=== PATIENT | male | born 1975 | race Caucasian/White ===

== ENCOUNTER 2016-04-30 20:01 | Emergency (ER) | payer OTHER ==
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
--- NOTE | 2016-05-05 08:47 | ED MAR SUMMARY ---
..... Medication Administration Record [facility] [address] [place] [address] Patient: DON HAAS Visit ID: [id number] 41y, M Weight: 108.8 kg Height/Length: 71 in BMI: 33.5 ALLERGIES: Sulfa Antibiotics
--- NOTE | 2016-05-05 08:47 | ED MAR SUMMARY ---
..... Medication Administration Record [facility] [address] [place] [address] Patient: DON HAAS Visit ID: [id number] 41y, M Weight: 108.8 kg Height/Length: 71 in BMI: 33.5 ALLERGIES: Sulfa Antibiotics
--- NOTE | 2016-05-05 08:47 | ED DISCHARGE INSTRUCTIONS ---
Patient: DON HAAS General Instructions [facility] VisitID: [id number] [place] [address] 41y, M Registration Date/Time: 04/30/2016 Muscle strain of the upper back. INSTRUCTIONS Warnings: GENERAL WARNINGS: Return or contact your physician immediately if your condition worsens or changes unexpectedly, if not improving as expected, or if other problems arise. Follow-up: Follow up with your doctor as needed. Understanding of the discharge instructions verbalized by patient. ADDITIONAL INFORMATION Back Pain [Acute Or Chronic] Back pain is usually caused by an injury to the muscles or ligaments of the spine. Sometimes the disks that separate each bone in the spine may bulge and cause pain by pressing on a nearby nerve. Back pain may also appear after a sudden twisting/bending force (such as in a car accident), after a simple awkward movement, or lifting something heavy with poor body positioning. In either case, muscle spasm is often present and adds to the pain. Acute back pain usually gets better in one to two weeks. Back pain related to disk disease, arthritis in the spinal joints or spinal stenosis (narrowing of the spinal canal) can become chronic and last for months or years. Unless you had a physical injury (for example, a car accident or fall) X-rays are usually not ordered for the initial evaluation of back pain. If pain continues and does not respond to medical treatment, x-rays and other tests may be performed at a later time. Home Care: You may need to stay in bed the first few days. But, as soon as possible, begin sitting or walking to avoid problems with prolonged bed rest (muscle weakness, worsening back stiffness and pain, blood clots in the legs). When in bed, try to find a position of comfort. A firm mattress is best. Try lying flat on your back with pillows under your knees. You can also try lying on your side with your knees bent up towards your chest and a pillow between your knees. Avoid prolonged sitting. This puts more stress on the lower back than standing or walking. During the first two days after injury, apply an ICE PACK to the painful area for 20 minutes every 2-4 hours. This will reduce swelling and pain. HEAT (hot shower, hot bath or heating pad) works well for muscle spasm. You can start with ice, then switch to heat after two days. Some patients feel best alternating ice and heat treatments. Use the one method that feels the best to you. You may use acetaminophen (Tylenol) or ibuprofen (Motrin, Advil) to control pain, unless another pain medicine was prescribed. [NOTE: If you have chronic liver or kidney disease or ever had a stomach ulcer or GI bleeding, talk with your doctor before using these medicines.] Be aware of safe lifting methods and do not lift anything over 15 pounds until all the pain is gone. Follow Up with your doctor or this facility if your symptoms do not start to improve after one week. Physical therapy may be needed. [NOTE: If X-rays were taken, they will be reviewed by a radiologist. You will be notified of any new findings that may affect your care.] Get Prompt Medical Attention if any of the following occur: Pain becomes worse or spreads to your legs Weakness or numbness in one or both legs Loss of bowel or bladder control Numbness in the groin or genital area You have been given the following additional information: Back Pain (Acute Or Chronic) (Electronically signed by Sheree Buck MD 05/05/2016 8:47)
--- NOTE | 2016-05-05 08:47 | ED MED RECONCILIATION SUMMARY ---
Patient: DON HAAS Medication Reconciliation Report [facility] VisitID: [id number] [address] [place] [place] [address] 41y, M Registration Date/Time: 04/30/2016 Weight: 108.8 kg Height/Length: 71 in. BMI: 33.5 ALLERGIES: Sulfa Antibiotics The patient's Home Medications are listed below: NONE. The source(s) of the original Home Medication information: patient The following Medications were given to the patient in the Emergency Department: None. The following Medications were prescribed to the patient: None.
--- NOTE | 2016-05-05 08:47 | ED MED RECONCILIATION SUMMARY ---
Patient: DON HAAS Medication Reconciliation Report [facility] VisitID: [id number] [address] [place] [address] 41y, M Registration Date/Time: 04/30/2016 Weight: 108.8 kg Height/Length: 71 in. BMI: 33.5 ALLERGIES: Sulfa Antibiotics The patient's Home Medications are listed below: NONE. The source(s) of the original Home Medication information: patient The following Medications were given to the patient in the Emergency Department: None. The following Medications were prescribed to the patient: None.
== END 2016-04-30 21:12 | disposition home or self-care (01) ==
LOC: ED SRH 20:01
DX: S39.012A Strain of muscle, fascia and tendon of lower back, initial encounter (principal); V13.4XXA Pedal cycle driver injured in collision with car, pick-up truck or van in traffic accident, initial encounter; Y93.55 Activity, bike riding; Y99.8 Other external cause status; Y92.410 Unspecified street and highway as the place of occurrence of the external cause; I10 Essential (primary) hypertension; E78.5 Hyperlipidemia, unspecified; Z88.2 Allergy status to sulfonamides

== ENCOUNTER 2016-06-07 12:53 | Emergency (ER) | payer OTHER ==
--- NOTE | 2016-06-07 13:39 | DIAGNOSTIC IMAGING REPORT ---
PROCEDURE: XR CHEST 2 VIEW INDICATION: CP TECHNIQUE: PA and lateral views. COMPARISON: Chest 09/01/1959 FINDINGS: Lungs are clear. Heart and mediastinum are normal. Thorax is normal. IMPRESSION: 1. Negative chest.
--- NOTE | 2016-06-07 15:34 | DIAGNOSTIC IMAGING REPORT ---
PROCEDURE: CTA THORAX WITH CONTRAST INDICATION: CHEST PAIN, RADIATES TO BACK, HX OF DRUG USE TECHNIQUE: 100 ml of Isovue 370 was injected intravenously and axial images were obtained of the chest with 3D sagittal and coronal MIP reconstructions. COMPARISON: Chest x-ray Performed the same day FINDINGS: Normal opacification of the pulmonary arterial tree without filling defect. The central pulmonary arteries are normal caliber. Thoracic aorta is normal caliber. No dissection or hematoma. The great vessels demonstrate a normal branching pattern. Heart size is normal. No pericardial effusion. No adenopathy or mediastinal masses. The esophagus is normal in caliber with a small hiatal hernia. The thyroid gland is normal. The lungs are clear. Mild circumferential peribronchial thickening involving the right hilar region and bilateral lower lobes. The airway is patent and branches normally. No pleural effusions or pneumothorax. Osseous structures are intact. The images obtained of the upper abdomen demonstrate mild splenomegaly. IMPRESSION: 1. No pulmonary embolus. 2. Mild bilateral perihilar peribronchial and lower lobe peribronchial thickening. This is nonspecific and may reflect acute or chronic bronchitis or reactive airways disease/asthma. 3. Mild splenomegaly, correlate clinically. 4. Findings called to the emergency room.
--- NOTE | 2016-06-07 15:46 | ED CLINICAL REPORT ---
Clinical Report - Physicians/Mid Levels [facility] [address] [place] [address] 06/07/2016 12:53 Patient: DON HAAS Arrived- By private vehicle. Historian- patient. HISTORY OF PRESENT ILLNESS Chief Complaint: CHEST PAIN. It is described as "pain" and it is described as located in the central chest area and radiating to the upper back. This started past 4 days and is still present. Onset during rest. At its maximum, severity described as moderate. When seen in the E.D., severity described as moderate. Modifying factors- (improved by heroin). Not worsened by anything. No nausea, vomiting, difficulty breathing or diaphoresis. (Reports being under a lot of stress as his significant other had recently from a severe infection. Patient also reports that he does recreational drugs and his significant other had also done the same.). No additional chest pain. Similar symptoms previously: None. Recent medical care: Not recently seen/assessed. REVIEW OF SYSTEMS No fever or skin rash. All systems otherwise negative, except as recorded above. PAST HISTORY See nurses notes. Denies the following risk factors for DVT/PE - history of DVT and pulmonary embolism, recent surgery, recent MN and congestive heart failure. Denies the following risk factors for DVT/PE - cancer, clotting disorder, estrogens, obesity and immobility. Denies the following risk factors for DVT/PE - advanced in age and vena cava filter. SOCIAL HISTORY Smoker- current status unknown. Occasional alcohol use. History of drug use. No recent travel. Is a local resident. ADDITIONAL NOTES The nursing notes have been reviewed. PHYSICAL EXAM Vital Signs: 06/07/2016 12:49 BP: 146/82. HR: 77. RR: 14. O2 saturation: 100%. Temp: 98 F. Pain level now: 9/10. Blood pressure normal. Oxygen saturation normal. Appearance: Alert. Oriented X3. No acute distress. Eyes: Pupils equal, round and reactive to light. Eyes normal inspection. ENT: Ears normal. Nose normal. Pharynx normal. Neck: Normal inspection. Neck supple. CVS: Normal heart rate and rhythm. Heart sounds normal. Pulses normal. Respiratory: No respiratory distress. Breath sounds normal. Chest nontender. No rales, rhonchi or wheezes. Abdomen: Soft and nontender. Bowel sounds normal. Skin: Skin warm and dry. Normal skin color. No rash. Normal skin turgor. Extremities: Extremities exhibit normal ROM. No lower extremity edema. Neuro: Oriented X 3. No motor deficit. No sensory deficit. LABS, X-RAYS, AND EKG EKG: No acute process. No acute ischemia. Normal EKG. Normal sinus rhythm. Normal P waves. Normal JAN. Normal QRS complex. Normal axis. Normal ST and T waves, QT and QTc. Prior EKG unavailable. The study has been interpreted contemporaneously. The study has been independently viewed by me. The EKG appears to be a good tracing. Chest X-ray: (PROCEDURE: XR CHEST 2 VIEW INDICATION: CP TECHNIQUE: PA and lateral views. COMPARISON: Chest 09/01/1959 FINDINGS: Lungs are clear. Heart and mediastinum are normal. Thorax is normal. IMPRESSION: 1. Negative chest.). Views: PA and lateral. The X-rays were independently viewed by me and interpreted by the radiologist. The X-rays were discussed with the radiologist (via pacs). Chest CT: (PROCEDURE: CTA THORAX WITH CONTRAST INDICATION: CHEST PAIN, RADIATES TO BACK, HX OF DRUG USE TECHNIQUE: 100 ml of Isovue 370 was injected intravenously and axial images were obtained of the chest with 3D sagittal and coronal MIP reconstructions. COMPARISON: Chest x-ray Performed the same day FINDINGS: Normal opacification of the pulmonary arterial tree without filling defect. The central pulmonary arteries are normal caliber. Thoracic aorta is normal caliber. No dissection or hematoma. The great vessels demonstrate a normal branching pattern. Heart size is normal. No pericardial effusion. No adenopathy or mediastinal masses. The esophagus is normal in caliber with a small hiatal hernia. The thyroid gland is normal. The lungs are clear. Mild circumferential peribronchial thickening involving the right hilar region and bilateral lower lobes. The airway is patent and branches normally. No pleural effusions or pneumothorax. Osseous structures are intact. The images obtained of the upper abdomen demonstrate mild splenomegaly. IMPRESSION: 1. No pulmonary embolus. 2. Mild bilateral perihilar peribronchial and lower lobe peribronchial thickening. This is nonspecific and may reflect acute or chronic bronchitis or reactive airways disease/asthma. 3. Mild splenomegaly, correlate clinically.). Chest CT performed with contrast. The study was independently viewed by me and interpreted by the radiologist. The study was discussed with the radiologist (via pacs and phone). Laboratory Tests: CBC w Diff: (CAROLINA: 06/07/2016 13:05) ( MsgRcvd 06/07/2016 13:56) Final results Test Result Flag Units (Reference) WHITE BLOOD COUNT 8.2 K/uL (4.5-11.5) RED BLOOD COUNT 5.08 M/uL (4.50-5.90) HEMOGLOBIN 14.4 gm/dL (13.5-17.5) HEMATOCRIT 42.7 % (41.0-53.0) MEAN CELL VOLUME 84 fL (80-100) MEAN CORPUSCULAR HGB 28 pg (26-34) MEAN CORPUSCULAR HGB CONC 34 g/dL (31-37) RED CELL DISTRIBUTION WIDTH 14.0 % (11.6-14.8) PLATELET COUNT 460 H K/uL (150-400) NEUTROPHIL % 58.8 % (50-75) LYMPH % 26.7 % (25-40) MONO % 8.6 % (3-14) EOSINOPHIL % 5.5 H % (0-4) BASOPHIL % 0.4 % (0-2) PT with INR: (CAROLINA: 06/07/2016 13:05) ( MsgRcvd 06/07/2016 13:42) Final results Test Result Flag Units (Reference) INR 1.0 (0.8-1.2) Low Intensity Therapy: INR 1.5-2.0 PT range 18.5-23.1Mod.Intensity Therapy: INR 2.0-3.0 PT range 23.1-31.5High Intensity Therapy: INR 2.5-3.5 PT range 27.4-35.5High Intensity Therapy 2: INR 3.0-4.0 PT range 31.5-39.3 APTT 35 H SECONDS (24-34) D-DIMER QUANTITATIVE 0.86 H ug/mLFEU (0.27-0.52) The primary value of this quantitative assay relates toits negative predictive value (i.e. exclusion) of pulmonaryembolism/deep vein thrombosis/DIC.Elevated levels of d-dimer may also occur with:, age, cancer, inflammation, liver disease,post-op, infection, hematoma, coronary disease, peripheralarteriopathy, bleeding disorders and thrombolytic treatment.Results should be correlated with other clinical andradiological data.Testing Methodology: Latex Immunoassay BNP: (CAROLINA: 06/07/2016 13:05) ( [facility] 06/07/2016 14:23) Final results Test Result Flag Units (Reference) B-TYPE NATRIURETIC PEPTIDE < 5.0 L pg/ml (5-100) CMP: (CAROLINA: 06/07/2016 13:05) ( [facility] 06/07/2016 13:50) Final results Test Result Flag Units (Reference) GLUCOSE 95 mg/dL (70-110) BUN 11 mg/dL (7-18) CREATININE 0.8 mg/dL (0.6-1.3) Estimated GFR >60 mL/min Estimated GFR- >60 mL/min Note: Persistent reduction over 3 months in eGFR<60 mL/min/1.73 m2 defines CKD. Patients with eGFR values>=60 mL/min/1.73 m2 may also have CKD if evidence ofpersistent proteinuria. Additional information may be foundat www.kidney.org. SODIUM 140 mmol/L (136-145) POTASSIUM 4.2 mmol/L (3.5-5.1) CHLORIDE 104 mmol/L (98-107) CARBON DIOXIDE 31 mmol/L (21-32) CALCIUM 9.0 mg/dL (8.5-10.1) TOTAL PROTEIN 7.6 g/dL (6.4-8.2) ALBUMIN 3.6 g/dL (3.3-5.0) BILIRUBIN, TOTAL 0.3 mg/dL (0.0-1.0) ALKALINE PHOSPHATASE 86 U/L (46-116) AST (SGOT) 35 U/L (15-37) ALT (SGPT) 46 U/L (12-78) TROPONIN I <0.05 L ng/mL (0.00-1.5) TROPONIN REFERENCE RANGE:<0.1 NEGATIVE0.1-1.5 INDETERMINANT>1.5 POSITIVE . PROGRESS AND PROCEDURES Course of Care: the patient is a pleasant 41-year-old male presenting for evaluation of chest pain. Patient has significant risk factors with his his substance abuse. Patient will be evaluated with chest x-ray, EKG, laboratory studies. His chest pain has been ongoing for the past 4 days. Single troponin required at this time. Did not fill delta troponin needed because of the chest pain being greater than 8 hours. Patient is agreeable to treatment plan. Pain medications have been ordered. Patient is otherwise nontoxic and in no acute distress. Patient's work up was remarkable for elevation in the d-dimer. Because of the patient's presentation, pulmonary embolism or thoracic aortic dissection could be a possibility. I discussion with patient in regards to CT scan. Patient is agreeable to treatment plan. CT scan has been ordered. Rest the patient slept her studies and noted to be unremarkable. White blood cell count normal at 8.2. Hemoglobin and hematocrit are normal at 14.4 and 42.7 respectively. No consolidations or effusions noted on patient's chest x-ray. EKG is also unremarkable. The patient's CT scan does not show any signs of pulmonary embolism or thoracic ordered dissection. Patient is resting in bed in no acute distress. Symptoms have improved while here in the emergency department. Had long discussion with patient in regards to his symptoms here in the emergency department and help of X of substance abuse. Encouraged patient to seek help and obtain help for his substance abuse here patient expressed understanding of my concerns and was agreeable to look into them. Patient's symptoms likely associated with a recent with a significant other. do not feel patient needs be admitted to the hospital or require further emergency department workup/evaluation. Patient will be given a referral to cardiology for outpatient follow-up and management of his chest pain. Patient is a stable outpatient candidate. a discussed with patient his workup here in the emergency department included home care, follow-up, return precautions, diagnosis precautions questions have been answered. The patient expressed understanding of these instructions and was agreeable to them. Disposition: Discharged. Condition: good. CLINICAL IMPRESSION Chest pain characterized as "tightness" .12 lead EKG performed. 06/07/2016 14:00 BP: 112/59. HR: 73. RR: 16. O2 saturation: 99%. Pain level now: 09/11. Blood pressure normal. Oxygen saturation normal. INSTRUCTIONS (Help is available if you need. Speak with your local substance abuse hotline for help. [phone]). Warnings: GENERAL WARNINGS: Return or contact your physician immediately if your condition worsens or changes unexpectedly, if not improving as expected, or if other problems arise. SPECIFICALLY, return if you develop chest, neck, jaw, shoulder, arm, or back pain, difficulty breathing, a fluttering sensation in your chest, lightheadedness, fainting, excessive fatigue, or sudden sweating. Your Current Medications: CONTINUE TAKING THE FOLLOWING MEDICATIONS: None*. OTC Medications: Aspirin 81 mg (available over the counter): take 1 orally every 24 hours. Dispense thirty (30). No refills. Follow-up: Return to the emergency department as needed. Follow up with your doctor in three days. Reason for referral: recheck today's concerns. Summary of care provided to patient via paper. Screening today revealed the patient's blood pressure to be in the normal range. The patient should follow up with a primary care provider for blood pressure management. Understanding of the discharge instructions verbalized by patient. Follow-up with: Alejo Carreno MD, Cardiology, , [facility] - Cardiology, [address] [place] [address] [address], [place], [id number] Follow up in three days. Reason for referral: recheck today's concerns. Summary of care provided to patient via paper. (Electronically signed by Ronaldo Almendarez Dr. 06/09/2016 5:07)
--- NOTE | 2016-06-07 15:46 | ED ORDER SUMMARY ---
..... Patient: DON HAAS OrderSheet Merged With [facility] VisitID: [id number] [place] [address] 41y, M Registration Date/Time: 06/07/2016 ORDER SHEET Weight: 113.3 kg (stated) Allergies: Sulfa Antibiotics GENERAL ORDERS: Chest 2V Urgent (13:14 06/07/2016 Heriberto Valladares) (Ack 13:16 Ronnie) (13:30 CARLOSoerner) CBC w Diff Urgent (13:14 06/07/2016 Heriberto Valladares) (Ack 13:16 Ronnie) (13:20 EHassan R.N.) CMP Urgent (13:14 06/07/2016 Heriberto Valladares) (Ack 13:16 Ronnie) (13:20 EHassan R.N.) UA-Culture if indicated Urgent (13:14 06/07/2016 Heriberto Valladares) (Ack 13:16 Ronnie) (14:53 KHoerner) PT with INR Urgent (13:14 06/07/2016 Heriberto Valladares) (Ack 13:16 Ronnie) (13:20 EHassan R.N.) PTT Urgent (13:14 06/07/2016 Heriberto Valladares) (Ack 13:16 Ronnie) (13:20 EHassan R.N.) D-Dimer Urgent (13:14 06/07/2016 Heriberto Valladares) (Ack 13:16 Ronnie) (13:20 EHsydnin R.N.) Troponin-I Urgent (13:14 06/07/2016 Heriberto Valladares) (Ack 13:16 Ronnie) (13:20 EHsydnin R.N.) BNP Urgent (13:14 06/07/2016 Heriberto Valldaares) (Ack 13:16 Ronnie) (13:20 EHassan R.N.) Pulse oximeter (13:14 06/07/2016 Heriberto Valladares) (13:20 EHassan R.N.) EKG - ER Stat (13:36 06/07/2016 PWeiler ER Tech1 per protocol) (13:36 PWeiler ER Tech1) CTA Thorax w Cont (No) (N/A) Urgent (13:54 06/07/2016 Heriberto Valladares) (Ack 13:57 CARLOSoerner) (15:32 Ronnie) MEDICATION ORDERS: NitroGLYCERIN SL 0.4 mg (once now) (13:14 06/07/2016 Heriberto Valladares) (14:07 Ashutosh R.N.) IV FLUIDS: IV Saline Lock (13:14 06/07/2016 Heriberto Valladares) (13:21 Ashutosh R.N.) Morphine IV 8 mg (HIGH ALERT MEDICATION, NOW) (14:08 06/07/2016 Heriberto Valladares) (14:14 Ashutosh R.N.) Dilaudid IV 1 mg (HIGH ALERT MEDICATION, NOW) (14:37 06/07/2016 Heriberto Valladares) (Ack 15:45 Kerri R.NDaniel) (15:54 Ashutosh R.N.) ORDER SHEET NOTES: [Electronically signed by Yvonne Addison R.N. (16:32 06/07/2016)] [Electronically signed by Ronaldo Almendarez Dr. (05:07 06/09/2016)] [Electronically locked/signed by Yvonne Addison R.N. (16:32 06/07/2016)]
--- NOTE | 2016-06-07 15:46 | ED ORDER SUMMARY ---
..... Patient: DON HAAS OrderSheet [facility] VisitID: [id number] [place] [address] 41y, M Registration Date/Time: 06/07/2016 ORDER SHEET Weight: 113.3 kg (stated) Allergies: Sulfa Antibiotics GENERAL ORDERS: Chest 2V Urgent (13:14 06/07/2016 Heriberto Valladares) (Ack 13:16 Ronnie) (13:30 CARLOSoerner) CBC w Diff Urgent (13:14 06/07/2016 Heriberto Valladares) (Ack 13:16 Ronnie) (13:20 EHassan R.N.) CMP Urgent (13:14 06/07/2016 Heriberto Valladares) (Ack 13:16 Ronnie) (13:20 EHassan R.N.) UA-Culture if indicated Urgent (13:14 06/07/2016 Heriberto Valladares) (Ack 13:16 Ronnie) (14:53 KHoerner) PT with INR Urgent (13:14 06/07/2016 Heriberto Valladares) (Ack 13:16 Ronnie) (13:20 EHassan R.N.) PTT Urgent (13:14 06/07/2016 Heriberto Valladares) (Ack 13:16 Ronnie) (13:20 EHassan R.N.) D-Dimer Urgent (13:14 06/07/2016 Heriberto Valladares) (Ack 13:16 Ronnie) (13:20 EHsydnin R.N.) Troponin-I Urgent (13:14 06/07/2016 Heriberto Valladares) (Ack 13:16 Ronnie) (13:20 EHsydnin R.N.) BNP Urgent (13:14 06/07/2016 Heriberto Valladares) (Ack 13:16 Ronnie) (13:20 EHassan R.N.) Pulse oximeter (13:14 06/07/2016 Heriberto Valladares) (13:20 EHassan R.N.) EKG - ER Stat (13:36 06/07/2016 PWeiler ER Tech1 per protocol) (13:36 PWeiler ER Tech1) CTA Thorax w Cont (No) (N/A) Urgent (13:54 06/07/2016 Heriberto Valladares) (Ack 13:57 CARLOSoerner) (15:32 Ronnie) MEDICATION ORDERS: NitroGLYCERIN SL 0.4 mg (once now) (13:14 06/07/2016 Heriberto Valladares) (14:07 Ashutosh R.N.) IV FLUIDS: IV Saline Lock (13:14 06/07/2016 Heriberto Valladares) (13:21 Ashutosh R.N.) Morphine IV 8 mg (HIGH ALERT MEDICATION, NOW) (14:08 06/07/2016 Heriberto Valladares) (14:14 Ashutosh R.N.) Dilaudid IV 1 mg (HIGH ALERT MEDICATION, NOW) (14:37 06/07/2016 Heriberto Valladares) (Ack 15:45 Kerri R.NDaniel) (15:54 Ashutosh R.N.) ORDER SHEET NOTES: [Electronically signed by Yvonne Addison R.N. (16:32 06/07/2016)] [Electronically signed by Ronaldo Almendarez Dr. (05:07 06/09/2016)] [Electronically locked/signed by Yvonne Addison R.N. (16:32 06/07/2016)]
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
--- NOTE | 2016-06-09 05:08 | ED MED RECONCILIATION SUMMARY ---
Patient: DON HAAS Medication Reconciliation Report [facility] VisitID: [id number] [address] [place] [address] 41y, M Registration Date/Time: 06/07/2016 Weight: 113.3 kg Height/Length: 68 in. BMI: 38.0 ALLERGIES: Sulfa Antibiotics The patient's Home Medications are listed below: NONE. The source(s) of the original Home Medication information: patient The following Medications were given to the patient in the Emergency Department: Nitroglycerin [SL] SL 0.4 mg, administered: 06/07/2016 2:07:00 PM Morphine [IVP] IVP 8 mg, administered: 06/07/2016 2:14:00 PM Dilaudid [IVP] IVP 1 mg, administered: 06/07/2016 3:54:00 PM The following Medications were prescribed to the patient: Aspirin 81 mg (available over the counter): take 1 orally every 24 hours. Dispense thirty (30). No refills. -- Ronaldo Almendarez Dr.
--- NOTE | 2016-06-09 05:08 | ED MAR SUMMARY ---
..... Medication Administration Record [facility] [address] [place] [place] [address] Patient: DON HAAS Visit ID: [id number] 41y, M Weight: 113.3 kg Height/Length: 68 in BMI: 38 ALLERGIES: Sulfa Antibiotics Given 14:07 06/07/2016 Yvonne Addison R.N. Medication Administered: NITROGLYCERIN [SL], Dose: 0.4 mg Tablets SL. Medication Ordered: NitroGLYCERIN SL 0.4 mg (once now). Given 14:14 06/07/2016 Yvonne Addison R.NDaniel Medication Administered: MORPHINE [IVP], Dose: 8 mg IVP over 2 minute(s), Site: #1 left AC. Medication Ordered: Morphine IV 8 mg (HIGH ALERT MEDICATION, NOW). Given 15:54 06/07/2016 Yvonne Addison RDanielN. Medication Administered: DILAUDID [IVP] (HYDROMORPHONE HCL PF), Dose: 1 mg IVP over 2 minute(s), Site: #1 left AC. Medication Ordered: Dilaudid IV 1 mg (HIGH ALERT MEDICATION, NOW).
--- NOTE | 2016-06-09 05:08 | ED MAR SUMMARY ---
..... Medication Administration Record [facility] [address] [place] [address] Patient: DON HAAS Visit ID: [id number] 41y, M Weight: 113.3 kg Height/Length: 68 in BMI: 38 ALLERGIES: Sulfa Antibiotics Given 14:07 06/07/2016 Yvonne Addison R.N. Medication Administered: NITROGLYCERIN [SL], Dose: 0.4 mg Tablets SL. Medication Ordered: NitroGLYCERIN SL 0.4 mg (once now). Given 14:14 06/07/2016 Yvonne Addison R.NDaniel Medication Administered: MORPHINE [IVP], Dose: 8 mg IVP over 2 minute(s), Site: #1 left AC. Medication Ordered: Morphine IV 8 mg (HIGH ALERT MEDICATION, NOW). Given 15:54 06/07/2016 Yvonne Addison RDanielN. Medication Administered: DILAUDID [IVP] (HYDROMORPHONE HCL PF), Dose: 1 mg IVP over 2 minute(s), Site: #1 left AC. Medication Ordered: Dilaudid IV 1 mg (HIGH ALERT MEDICATION, NOW).
--- NOTE | 2016-06-09 05:08 | ED MED RECONCILIATION SUMMARY ---
Patient: DON HAAS Medication Reconciliation Report [facility] VisitID: [id number] [address] [place] [address] 41y, M Registration Date/Time: 06/07/2016 Weight: 113.3 kg Height/Length: 68 in. BMI: 38.0 ALLERGIES: Sulfa Antibiotics The patient's Home Medications are listed below: NONE. The source(s) of the original Home Medication information: patient The following Medications were given to the patient in the Emergency Department: Nitroglycerin [SL] SL 0.4 mg, administered: 06/07/2016 2:07:00 PM Morphine [IVP] IVP 8 mg, administered: 06/07/2016 2:14:00 PM Dilaudid [IVP] IVP 1 mg, administered: 06/07/2016 3:54:00 PM The following Medications were prescribed to the patient: Aspirin 81 mg (available over the counter): take 1 orally every 24 hours. Dispense thirty (30). No refills. -- Ronaldo Almendarez Dr.
--- NOTE | 2016-06-09 05:08 | ED DISCHARGE INSTRUCTIONS ---
Patient: DON HAAS General Instructions [facility] VisitID: [id number] [place] [address] 41y, M Registration Date/Time: 06/07/2016 Chest pain characterized as "tightness" .12 lead EKG performed. 06/07/2016 14:00 BP: 112/59. HR: 73. RR: 16. O2 saturation: 99%. Pain level now: 09/11. Blood pressure normal. Oxygen saturation normal. INSTRUCTIONS (Help is available if you need. Speak with your local substance abuse hotline for help. [phone]). Warnings: GENERAL WARNINGS: Return or contact your physician immediately if your condition worsens or changes unexpectedly, if not improving as expected, or if other problems arise. SPECIFICALLY, return if you develop chest, neck, jaw, shoulder, arm, or back pain, difficulty breathing, a fluttering sensation in your chest, lightheadedness, fainting, excessive fatigue, or sudden sweating. Your Current Medications: CONTINUE TAKING THE FOLLOWING MEDICATIONS: None*. OTC Medications: Aspirin 81 mg (available over the counter): take 1 orally every 24 hours. Dispense thirty (30). No refills. Follow-up: Return to the emergency department as needed. Follow up with your doctor in three days. Reason for referral: recheck today's concerns. Summary of care provided to patient via paper. Screening today revealed the patient's blood pressure to be in the normal range. The patient should follow up with a primary care provider for blood pressure management. Understanding of the discharge instructions verbalized by patient. Follow-up with: Alejo Carreno MD, Cardiology, , [facility] - Cardiology, [id number] [address] [address], [place], [address] Follow up in three days. Reason for referral: recheck today's concerns. Summary of care provided to patient via paper. ADDITIONAL INFORMATION Chest Pain, Uncertain Cause Chest pain can happen for a number of reasons. Sometimes the cause can not be determined. If yourcondition does not seem serious, and your pain does not appear to be coming from your heart, your doctor may recommend watching it closely. Sometimes the signs of a serious problem take more time to appear. Therefore, watch for the warning signs listed below. Home care After your visit, follow these recommendations: Rest today and avoid strenuous activity. Take any prescribed medicine as directed. Follow-up care Follow up with your doctor or this facility as instructed or if you do not start to feel better within 24 hours. Call 911 Get immediate medical attention if any of the following occur: A change in the type of pain: if it feels different, becomes more severe, lasts longer, or begins to spread into your shoulder, arm, neck, jaw or back Shortness of breath or increased pain with breathing Weakness, dizziness, or fainting Rapid heart beat Get prompt medical attention Call your doctor right away if any of the following occur: Cough with dark colored sputum (phlegm) or blood Fever of 100.4F(38C) or higher, or as directed by your health care provider Swelling, pain or redness in one leg Aspirin Oral tablet What is this medicine? ASPIRIN ( pir in) is a pain reliever. It is used to treat mild pain and fever. This medicine is also used as directed by a doctor to prevent and to treat heart attacks, to prevent strokes, and to treat arthritis or inflammation. How should I use this medicine? Take this medicine by mouth with a glass of water. Follow the directions on the package or prescription label. You can take this medicine with or without food. If it upsets your stomach, take it with food. Do not take your medicine more often than directed. Talk to your manager industrial regarding the use of this medicine in children. While this drug may be prescribed for children as young as 12 years of age for selected conditions, precautions do apply. Children and teenagers should not use this medicine to treat chicken pox or flu symptoms unless directed by a doctor. Patients over 65 years old may have a stronger reaction and need a smaller dose. What side effects may I notice from receiving this medicine? Side effects that you should report to your doctor or health health care marketing specialist as soon as possible: allergic reactions like skin rash, itching or hives, swelling of the face, lips, or tongue breathing problems changes in hearing, ringing in the ears confusion general ill feeling or flu-like symptoms pain on swallowing redness, blistering, peeling or loosening of the skin, including inside the mouth or nose signs and symptoms of bleeding such as bloody or black, tarry stools; red or dark-brown urine; spitting up blood or brown material that looks like coffee grounds; red spots on the skin; unusual bruising or bleeding from the eye, gums, or nose trouble passing urine or change in the amount of urine unusually weak or tired yellowing of the eyes or skin Side effects that usually do not require medical attention (report to your doctor or health health care marketing specialist if they continue or are bothersome): diarrhea or constipation nausea, vomiting stomach gas, heartburn What may interact with this medicine? Do not take this medicine with any of the following medications: cidofovir ketorolac probenecid This medicine may also interact with the following medications: alcohol alendronate bismuth subsalicylate flavocoxid herbal supplements like feverfew, garlic, carmelo, ginkgo biloba, horse chestnut medicines for diabetes or glaucoma like acetazolamide, methazolamide medicines for gout medicines that treat or prevent blood clots like enoxaparin, heparin, ticlopidine, warfarin other aspirin and aspirin-like medicines NSAIDs, medicines for pain and inflammation, like ibuprofen or naproxen pemetrexed sulfinpyrazone varicella live vaccine What if I miss a dose? If you are taking this medicine on a regular schedule and miss a dose, take it as soon as you can. If it is almost time for your next dose, take only that dose. Do not take double or extra doses. Where should I keep my medicine? Keep out of the reach of children. Store at room temperature between 15 and 30 degrees C (59 and 86 degrees F). Protect from heat and moisture. Do not use this medicine if it has a strong vinegar smell. Throw away any unused medicine after the expiration date. What should I tell my health care provider before I take this medicine? They need to know if you have any of these conditions: anemia asthma bleeding problems child with chickenpox, the flu, or other viral infection diabetes gout if you frequently drink alcohol containing drinks kidney disease liver disease low level of vitamin K lupus smoke tobacco stomach ulcers or other problems an unusual or allergic reaction to aspirin, tartrazine dye, other medicines, dyes, or preservatives or trying to get breast-feeding What should I watch for while using this medicine? If you are treating yourself for pain, tell your doctor or health health care marketing specialist if the pain lasts more than 10 days, if it gets worse, or if there is a new or different kind of pain. Tell your doctor if you see redness or swelling. Also, check with your doctor if you have a fever that lasts for more than 3 days. Only take this medicine to prevent heart attacks or blood clotting if prescribed by your doctor or health health care marketing specialist. Do not take aspirin or aspirin-like medicines with this medicine. Too much aspirin can be dangerous. Always read the labels carefully. This medicine can irritate your stomach or cause bleeding problems. Do not smoke cigarettes or drink alcohol while taking this medicine. Do not lie down for 30 minutes after taking this medicine to prevent irritation to your throat. If you are scheduled for any medical or dental procedure, tell your healthcare provider that you are taking this medicine. You may need to stop taking this medicine before the procedure. You have been given the following additional information: Chest Pain, Uncertain Cause Aspirin Oral tablet (Electronically signed by Ronaldo Almendarez Dr. 06/09/2016 5:07)
--- NOTE | 2016-06-09 05:08 | ED DISCHARGE INSTRUCTIONS ---
Patient: DON HAAS General Instructions [facility] VisitID: [id number] [place] [address] 41y, M Registration Date/Time: 06/07/2016 Chest pain characterized as "tightness" .12 lead EKG performed. 06/07/2016 14:00 BP: 112/59. HR: 73. RR: 16. O2 saturation: 99%. Pain level now: 09/11. Blood pressure normal. Oxygen saturation normal. INSTRUCTIONS (Help is available if you need. Speak with your local substance abuse hotline for help. [phone]). Warnings: GENERAL WARNINGS: Return or contact your physician immediately if your condition worsens or changes unexpectedly, if not improving as expected, or if other problems arise. SPECIFICALLY, return if you develop chest, neck, jaw, shoulder, arm, or back pain, difficulty breathing, a fluttering sensation in your chest, lightheadedness, fainting, excessive fatigue, or sudden sweating. Your Current Medications: CONTINUE TAKING THE FOLLOWING MEDICATIONS: None*. OTC Medications: Aspirin 81 mg (available over the counter): take 1 orally every 24 hours. Dispense thirty (30). No refills. Follow-up: Return to the emergency department as needed. Follow up with your doctor in three days. Reason for referral: recheck today's concerns. Summary of care provided to patient via paper. Screening today revealed the patient's blood pressure to be in the normal range. The patient should follow up with a primary care provider for blood pressure management. Understanding of the discharge instructions verbalized by patient. Follow-up with: Alejo Carreno MD, Cardiology, , [facility] - Cardiology, [address], [place], [address] Follow up in three days. Reason for referral: recheck today's concerns. Summary of care provided to patient via paper. ADDITIONAL INFORMATION Chest Pain, Uncertain Cause Chest pain can happen for a number of reasons. Sometimes the cause can not be determined. If yourcondition does not seem serious, and your pain does not appear to be coming from your heart, your doctor may recommend watching it closely. Sometimes the signs of a serious problem take more time to appear. Therefore, watch for the warning signs listed below. Home care After your visit, follow these recommendations: Rest today and avoid strenuous activity. Take any prescribed medicine as directed. Follow-up care Follow up with your doctor or this facility as instructed or if you do not start to feel better within 24 hours. Call 911 Get immediate medical attention if any of the following occur: A change in the type of pain: if it feels different, becomes more severe, lasts longer, or begins to spread into your shoulder, arm, neck, jaw or back Shortness of breath or increased pain with breathing Weakness, dizziness, or fainting Rapid heart beat Get prompt medical attention Call your doctor right away if any of the following occur: Cough with dark colored sputum (phlegm) or blood Fever of 100.4F(38C) or higher, or as directed by your health care provider Swelling, pain or redness in one leg Aspirin Oral tablet What is this medicine? ASPIRIN ( pir in) is a pain reliever. It is used to treat mild pain and fever. This medicine is also used as directed by a doctor to prevent and to treat heart attacks, to prevent strokes, and to treat arthritis or inflammation. How should I use this medicine? Take this medicine by mouth with a glass of water. Follow the directions on the package or prescription label. You can take this medicine with or without food. If it upsets your stomach, take it with food. Do not take your medicine more often than directed. Talk to your programmable logic controller assembler regarding the use of this medicine in children. While this drug may be prescribed for children as young as 12 years of age for selected conditions, precautions do apply. Children and teenagers should not use this medicine to treat chicken pox or flu symptoms unless directed by a doctor. Patients over 65 years old may have a stronger reaction and need a smaller dose. What side effects may I notice from receiving this medicine? Side effects that you should report to your doctor or health intensive care ambulance paramedic as soon as possible: allergic reactions like skin rash, itching or hives, swelling of the face, lips, or tongue breathing problems changes in hearing, ringing in the ears confusion general ill feeling or flu-like symptoms pain on swallowing redness, blistering, peeling or loosening of the skin, including inside the mouth or nose signs and symptoms of bleeding such as bloody or black, tarry stools; red or dark-brown urine; spitting up blood or brown material that looks like coffee grounds; red spots on the skin; unusual bruising or bleeding from the eye, gums, or nose trouble passing urine or change in the amount of urine unusually weak or tired yellowing of the eyes or skin Side effects that usually do not require medical attention (report to your doctor or health intensive care ambulance paramedic if they continue or are bothersome): diarrhea or constipation nausea, vomiting stomach gas, heartburn What may interact with this medicine? Do not take this medicine with any of the following medications: cidofovir ketorolac probenecid This medicine may also interact with the following medications: alcohol alendronate bismuth subsalicylate flavocoxid herbal supplements like feverfew, garlic, carmelo, ginkgo biloba, horse chestnut medicines for diabetes or glaucoma like acetazolamide, methazolamide medicines for gout medicines that treat or prevent blood clots like enoxaparin, heparin, ticlopidine, warfarin other aspirin and aspirin-like medicines NSAIDs, medicines for pain and inflammation, like ibuprofen or naproxen pemetrexed sulfinpyrazone varicella live vaccine What if I miss a dose? If you are taking this medicine on a regular schedule and miss a dose, take it as soon as you can. If it is almost time for your next dose, take only that dose. Do not take double or extra doses. Where should I keep my medicine? Keep out of the reach of children. Store at room temperature between 15 and 30 degrees C (59 and 86 degrees F). Protect from heat and moisture. Do not use this medicine if it has a strong vinegar smell. Throw away any unused medicine after the expiration date. What should I tell my health care provider before I take this medicine? They need to know if you have any of these conditions: anemia asthma bleeding problems child with chickenpox, the flu, or other viral infection diabetes gout if you frequently drink alcohol containing drinks kidney disease liver disease low level of vitamin K lupus smoke tobacco stomach ulcers or other problems an unusual or allergic reaction to aspirin, tartrazine dye, other medicines, dyes, or preservatives or trying to get breast-feeding What should I watch for while using this medicine? If you are treating yourself for pain, tell your doctor or health intensive care ambulance paramedic if the pain lasts more than 10 days, if it gets worse, or if there is a new or different kind of pain. Tell your doctor if you see redness or swelling. Also, check with your doctor if you have a fever that lasts for more than 3 days. Only take this medicine to prevent heart attacks or blood clotting if prescribed by your doctor or health intensive care ambulance paramedic. Do not take aspirin or aspirin-like medicines with this medicine. Too much aspirin can be dangerous. Always read the labels carefully. This medicine can irritate your stomach or cause bleeding problems. Do not smoke cigarettes or drink alcohol while taking this medicine. Do not lie down for 30 minutes after taking this medicine to prevent irritation to your throat. If you are scheduled for any medical or dental procedure, tell your healthcare provider that you are taking this medicine. You may need to stop taking this medicine before the procedure. You have been given the following additional information: Chest Pain, Uncertain Cause Aspirin Oral tablet (Electronically signed by Ronaldo Almendarez Dr. 06/09/2016 5:07)
== END 2016-06-07 16:26 | disposition home or self-care (01) ==
LOC: ED SRH 12:53
DX: R07.89 Other chest pain (principal); I10 Essential (primary) hypertension; E78.5 Hyperlipidemia, unspecified; Z88.2 Allergy status to sulfonamides
CPT/HCPCS: 90100; 90616; 91320; 91556; 94001; 94060; 95059

== ENCOUNTER 2016-07-29 05:43 | Emergency (ER) | payer OTHER ==
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
--- NOTE | 2016-07-29 06:17 | ED ORDER SUMMARY ---
..... Patient: DON HAAS OrderSheet [facility] VisitID: [id number] [place] [address] 41y, M Registration Date/Time: 07/29/2016 ORDER SHEET Weight: 99.7 kg (stated) Allergies: Sulfa Antibiotics GENERAL ORDERS: GC/Chlamydia (Penis) (purulent) Urgent (06:14 07/29/2016 Heriberto Valladares) (Ack 6:17 Debora ER Digital Pre Press Operator) (6:25 DDavis R.N.) UA-Culture if indicated Urgent (06:14 07/29/2016 Heriberto Valladares) (Ack 6:17 Debora ER Digital Pre Press Operator) (6:25 DDavis R.N.) MEDICATION ORDERS: Flagyl PO 2000 mg (NOW) (06:13 07/29/2016 Heriberto Valladares) (6:37 DDavis R.N.) Ceftriaxone IM 250 mg (with lidocaine) (06:13 07/29/2016 Heriberto Valladares) (6:38 DDavis R.N.) Lidocaine Injection 1% (to give with ceftriaxone (5 cc or less)) (06:13 07/29/2016 Heriberto Valladares) (6:39 DDavis R.N.) Azithromycin PO 1000 mg (NOW) (06:13 07/29/2016 Heriberto Valladares) (6:37 DDavis R.N.) Hydrocodone-APAP PO 5/325 mg (NOW, HIGH ALERT MEDICATION) (06:16 07/29/2016 Heriberto Valladares) (6:38 DDavis R.N.) IV FLUIDS: ORDER SHEET NOTES: [Electronically signed by Nura Whitney R.N. (06:47 07/29/2016)] [Electronically signed by Ronaldo Almendarez Dr. (06:09 08/01/2016)] [Electronically locked/signed by Nura Whitney R.N. (06:47 07/29/2016)]
--- NOTE | 2016-07-29 06:17 | ED CLINICAL REPORT ---
Clinical Report - Physicians/Mid Levels [facility] [address] [place] [address] 07/29/2016 5:42 [id number] Time Seen: 0610. Arrived- By private vehicle. Historian- patient. HISTORY OF PRESENT ILLNESS Chief Complaint: PENILE DISCHARGE and DYSURIA. This started over a week and is still present and worsening. The problem is described as severe. It was abrupt in onset and has been constant but is not gone now. The patient has had a copious amount of yellow and thick penile discharge. He has had discomfort with urination. No genital lesion, testicular pain or flank pain. Able to void. The patient has had unprotected intercourse and an unconfirmed exposure to a sexually transmitted disease. Similar symptoms previously: None. Recent medical care: Not recently seen/assessed. REVIEW OF SYSTEMS All systems otherwise negative, except as recorded above. PAST HISTORY See nurses notes. SOCIAL HISTORY Never smoker. Alcohol use. History of drug use. No recent travel. Is a local resident. ADDITIONAL NOTES The nursing notes have been reviewed. PHYSICAL EXAM Vital Signs: 07/29/2016 05:54 BP: 135/76. HR: 86. RR: 24. O2 saturation: 99%. Temp: 97.8 F. Pain level now: 10/10. Blood pressure normal. Oxygen saturation normal. Appearance: Alert. Oriented X3. No acute distress. (polite, cooperative, pleasant). CVS: Heart sounds normal. Respiratory: No respiratory distress. Breath sounds normal. Abdomen: Soft and nontender. Bowel sounds normal. No mass. : (yellow purulent discharge, moderate. circumsized. no testicular or epidydamal tenderness or masses. no lesions or rashes. normal glans, shaft, and scrotum. no gangrene). Skin: Skin warm and dry. Normal skin color. No rash. Normal skin turgor. Extremities: Extremities exhibit normal ROM. No lower extremity edema. Neuro: Oriented X 3. No motor deficit. No sensory deficit. LABS, X-RAYS, AND EKG Laboratory Tests: UA-Culture if indicated: ([place]: 07/29/2016 06:20) ( Mscvd 07/29/2016 06:38) Final results Test Result Flag Units (Reference) URINE COLOR YELLOW URINE APPEARANCE CLEAR URINE GLUCOSE NEGATIVE (NEGATIVE) URINE BILIRUBIN NEGATIVE (NEGATIVE) URINE KETONE NEGATIVE (NEGATIVE) URINE SPECIFIC GRAVITY 1.010 (1.010-1.030) URINE PH 6.0 (5.0-8.0) URINE PROTEIN NEGATIVE (NEGATIVE) URINE UROBILINOGEN 0.2 EU/dL (0.2-1.0) URINE NITRITE NEGATIVE (NEGATIVE) URINE BLOOD 1+ (NEGATIVE) URINE LEUK ESTERASE POSITIVE (NEGATIVE) URINE RBC 0-1 rbc/hpf (0-1) URINE WBC 15-25 wbc/hpf (0-1) URINE EPITHELIAL CELLS 0-1 EPI/hpf (0-5) URINE BACTERIA NONE SEEN (NONE SEEN) URINE COMMENT CULTURE INDICATED MANY YEASTURINE CULTURES ARE SET-UP BASED ON THE FOLLOWING CRITERIA:POSITIVE NITRITEPOSITIVE LEUKOCYTE ESTERASEGREATER THAN 10 WHITE BLOOD CELLSMODERATE (2+) OR GREATER BACTERIA Culture, Urine: ([place]: 07/29/2016 06:20) ( MsgRcvd 07/31/2016 12:03) Final results Test Result Flag Units (Reference) CULTURE, URINE DATE: 07/31/16 NO GROWTH AT:: NO GROWTH AT 2 DAYS PRELIM REPORT: FINAL REPORT . PROGRESS AND PROCEDURES Course of Care: the patient is a pleasant 41-year-old male presented for Evaluation of penile discharge. Patient with signs and symptoms that are consistent with a sexually transmitted infection. Patient will be treated empirically for sexual transmitted infection for gonorrhea chlamydia, andtrichomonas. Patient is otherwise nontoxic in appearance. No evidence of sepsis at this time. I discussion patient in regards to safe sex practices. I did not examine ordered here in the emergency department. Patient will be treated while here in the emergency department. Pain medication is also been provided. I discussion the patient in regards to his workup here in the emergency department including diagnosis, home care, follow-up, and return precautions. All questions have been answered. The patient expressed understanding of these instructions and was able to them. Disposition: Discharged. Condition: good. CLINICAL IMPRESSION 07/29/2016 05:54 BP: 135/76. HR: 86. RR: 24. O2 saturation: 99%. Temp: 97.8 F. Pain level now: 10/10. Blood pressure normal. Oxygen saturation normal. Sexually transmitted disease (acute). Acute nonspecific urethritis INSTRUCTIONS Warnings: GENERAL WARNINGS: Return or contact your physician immediately if your condition worsens or changes unexpectedly, if not improving as expected, or if other problems arise. Specifically return if pain, vomiting, bleeding, breathing difficulty or fever. Your Current Medications: CONTINUE TAKING THE FOLLOWING MEDICATIONS: None*. Prescription Medications: [place] 5 mg / 325 mg tablets: take 1 orally every 6 hours as needed for pain. Dispense twelve (12). No refill. Substitution is permissible. Follow-up: Return to the emergency department as needed. Follow up with your doctor in three days. Reason for referral: recheck today's concerns. Screening today revealed the patient's blood pressure to be in the normal range. The patient should follow up with a primary care provider for blood pressure management. Understanding of the discharge instructions verbalized by patient. (Electronically signed by Ronaldo Almendarez Dr. 08/01/2016 6:09)
--- NOTE | 2016-07-29 06:17 | ED ORDER SUMMARY ---
..... Patient: DON HAAS OrderSheet [facility] VisitID: [id number] [place] [address] 41y, M Registration Date/Time: 07/29/2016 ORDER SHEET Weight: 99.7 kg (stated) Allergies: Sulfa Antibiotics GENERAL ORDERS: GC/Chlamydia (Penis) (purulent) Urgent (06:14 07/29/2016 Heriberto Valladares) (Ack 6:17 Debora ER Instructional Systems Specialist) (6:25 DDavis R.N.) UA-Culture if indicated Urgent (06:14 07/29/2016 Heriberto Valladares) (Ack 6:17 Debora ER Instructional Systems Specialist) (6:25 DDavis R.N.) MEDICATION ORDERS: Flagyl PO 2000 mg (NOW) (06:13 07/29/2016 Heriberto Valladares) (6:37 DDavis R.N.) Ceftriaxone IM 250 mg (with lidocaine) (06:13 07/29/2016 Heriberto Valladares) (6:38 DDavis R.N.) Lidocaine Injection 1% (to give with ceftriaxone (5 cc or less)) (06:13 07/29/2016 Heriberto Valladares) (6:39 DDavis R.N.) Azithromycin PO 1000 mg (NOW) (06:13 07/29/2016 Heriberto Valladares) (6:37 DDavis R.N.) Hydrocodone-APAP PO 5/325 mg (NOW, HIGH ALERT MEDICATION) (06:16 07/29/2016 Heriberto Valladares) (6:38 DDavis R.N.) IV FLUIDS: ORDER SHEET NOTES: [Electronically signed by Nura Whitney R.N. (06:47 07/29/2016)] [Electronically signed by Ronaldo Almendarez Dr. (06:09 08/01/2016)] [Electronically locked/signed by Nura Whitney R.N. (06:47 07/29/2016)]
--- NOTE | 2016-08-01 06:10 | ED DISCHARGE INSTRUCTIONS ---
Patient: DON HAAS General Instructions [facility] VisitID: [id number] [place] [address] 41y, M Registration Date/Time: 07/29/2016 07/29/2016 05:54 BP: 135/76. HR: 86. RR: 24. O2 saturation: 99%. Temp: 97.8 F. Pain level now: 1010. Blood pressure normal. Oxygen saturation normal. Sexually transmitted disease (acute). Acute nonspecific urethritis INSTRUCTIONS Warnings: GENERAL WARNINGS: Return or contact your physician immediately if your condition worsens or changes unexpectedly, if not improving as expected, or if other problems arise. Specifically return if pain, vomiting, bleeding, breathing difficulty or fever. Your Current Medications: CONTINUE TAKING THE FOLLOWING MEDICATIONS: None*. Prescription Medications: [place] 5 mg / 325 mg tablets: take 1 orally every 6 hours as needed for pain. Dispense twelve (12). No refill. Substitution is permissible. Follow-up: Return to the emergency department as needed. Follow up with your doctor in three days. Reason for referral: recheck today's concerns. Screening today revealed the patient's blood pressure to be in the normal range. The patient should follow up with a primary care provider for blood pressure management. Understanding of the discharge instructions verbalized by patient. ADDITIONAL INFORMATION Std (Urethritis) (Male, Adult: Gc Or Chlamydia) You have an infection in the urethra (the channel in the penis that passes urine). This is most often due to a bacterial infection with either "Chlamydia" or "Gonorrhea." This is a sexually transmitted disease (STD). It is highly contagious and passed by sexual contact with an infected partner. Symptoms begin within 1-3 weeks after exposure. There is usually a discharge from the penis and burning during urination. Many women with this infection will have only mild symptoms or no symptoms at all early in the disease. A culture test may be taken to confirm the diagnosis. Antibiotics may be started before the culture test returns. Home Care: Your sexual partner needs to be treated even if there are no symptoms. Your partner should contact their own doctor or go to an urgent care clinic or the Public Health Department to be examined and treated. Avoid sexual activity until both you and your partner have completed all antibiotic medicine, and you have been told by your doctor that you are no longer contagious. Take all antibiotic medicine as directed until it is finished. Otherwise, symptoms may recur. Learn about safe sex practices and use these in the future. The safest sex is with a partner who has tested negative and only has sex with you. Condoms offer protection from spreading some sexually transmitted diseases including Gonorrhea, Chlamydia and HIV, but are not a guarantee. Follow Up with your doctor or as advised by our staff. If a culture test was taken, you may call us in three days for the results, or as directed. Another culture test should be taken 4-6 weeks after treatment to be sure the infection has cleared. Follow up with your doctor or the Public Health Department for complete STD screening, including HIV testing. For more information about STD's, contact the National STD Hotline: . Get Prompt Medical Attention if any of the following occur: No improvement after three days of treatment Inability to urinate due to pain Rash or joint pain Painful sores on the penis Enlarged painful lymph nodes (lumps) in the groin Testicle pain or swelling of the scrotum Urethritis [Male, Infection Vs. Chemical] In a man, the urethra is the channel in the penis that passes urine. Urethritis is an inflammation of the urethra. This is usually due to infection or chemical irritation. It causes pain and burning when passing urine. There may also be some discharge from the urethral opening. The cause for your urethritis is not certain. It is usually due to infection or chemical irritation. A chemical irritation causes temporary inflammation and pain with urination. Soaps, lotions, colognes, as well as contraceptive jellies, creams or foams can cause this. Symptoms improve within three days after last exposure. A sexually transmitted disease (STD) from Gonorrhea or Chlamydia is the most common cause for an infection of the urethra. If your doctor thinks you may have an STD, a culture may be taken. It will take about three days to get a culture result. Antibiotics may be started before the culture test returns. A bladder infection is a common cause for pain and burning when passing urine, but it causes no discharge from the urethra. Urethritis becomes "chronic" when it lasts for weeks or months, or goes away and comes back. This kind of urethritis may be caused by a narrowed urethra or an untreated bacterial infection. A referral to a specialist may be needed to diagnose and treat chronic dysuria. Home Care: 1) Avoid any chemical agents that you suspect may be causing your symptoms. 2) If you were given a prescription medicine, take as directed. 3) If an STD culture was taken, avoid sexual activity until you have been told that it is negative (no infection). Then, follow your doctor's advice to treat your condition. 4) If an STD culture was done and it is positive: Both you and your sexual partner need to be treated, even if your partner has no symptoms. Contact your doctor or go to an urgent care clinic or the Public Health Department to be examined and treated. Avoid sexual activity until both you and your partner have completed all antibiotic medicine and told that you are no longer contagious. Learn about safe sex practices and use these in the future. The safest sex is with a partner who has tested negative and only has sex with you. Condoms offer protection from spreading some sexually transmitted diseases including Gonorrhea, Chlamydia and HIV, but are not a guarantee. Follow Up with your doctor as advised by our staff. If a culture was taken, call in three days for the result, or as directed. If diagnosed with an STD, follow up with your doctor or the Public Health Department for complete STD screening, including HIV testing. For more information, contact the National STD Hotline: . Get Prompt Medical Attention if any of the following occur: -- No improvement after three days of treatment -- Inability to urinate due to pain -- Rash or joint pain -- Painful sores on the penis -- Enlarged painful lymph nodes (lumps) in the groin -- Testicle pain or swelling of the scrotum Hydrocodone Bitartrate, Acetaminophen Oral tablet What is this medicine? ACETAMINOPHEN; HYDROCODONE (a set a PORSHA yaw fen; elan droe KOE done) is a pain reliever. It is used to treat mild to moderate pain. How should I use this medicine? Take this medicine by mouth. Swallow it with a full glass of water. Follow the directions on the prescription label. If the medicine upsets your stomach, take the medicine with food or milk. Do not take more than you are told to take. Talk to your housing assistant regarding the use of this medicine in children. This medicine is not approved for use in children. What side effects may I notice from receiving this medicine? Side effects that you should report to your doctor or health child care center assistant director as soon as possible: allergic reactions like skin rash, itching or hives, swelling of the face, lips, or tongue breathing problems confusion feeling faint or lightheaded, falls stomach pain yellowing of the eyes or skin Side effects that usually do not require medical attention (report to your doctor or health child care center assistant director if they continue or are bothersome): nausea, vomiting stomach upset What may interact with this medicine? alcohol antihistamines isoniazid medicines for depression, anxiety, or psychotic disturbances medicines for sleep muscle relaxants naltrexone narcotic medicines (opiates) for pain phenobarbital ritonavir tramadol What if I miss a dose? If you miss a dose, take it as soon as you can. If it is almost time for your next dose, take only that dose. Do not take double or extra doses. Where should I keep my medicine? Keep out of the reach of children. This medicine can be abused. Keep your medicine in a safe place to protect it from theft. Do not share this medicine with anyone. Selling or giving away this medicine is dangerous and against the law. Store at room temperature between 15 and 30 degrees C (59 and 86 degrees F). Protect from light. Keep container tightly closed. Throw away any unused medicine after the expiration date. Discard unused medicine and used packaging carefully. Pets and children can be harmed if they find used or lost packages. What should I tell my health care provider before I take this medicine? They need to know if you have any of these conditions: brain tumor Crohn's disease, inflammatory bowel disease, or ulcerative colitis drink more than 3 alcohol-containing drinks per day drug abuse or addiction head injury heart or circulation problems kidney disease or problems going to the bathroom liver disease lung disease, asthma, or breathing problems an unusual or allergic reaction to acetaminophen, hydrocodone, other opioid analgesics, other medicines, foods, dyes, or preservatives or trying to get breast-feeding What should I watch for while using this medicine? Tell your doctor or health child care center assistant director if your pain does not go away, if it gets worse, or if you have new or a different type of pain. You may develop tolerance to the medicine. Tolerance means that you will need a higher dose of the medicine for pain relief. Tolerance is normal and is expected if you take the medicine for a long time. Do not suddenly stop taking your medicine because you may develop a severe reaction. Your body becomes used to the medicine. This does NOT mean you are addicted. Addiction is a behavior related to getting and using a drug for a non-medical reason. If you have pain, you have a medical reason to take pain medicine. Your doctor will tell you how much medicine to take. If your doctor wants you to stop the medicine, the dose will be slowly lowered over time to avoid any side effects. You may get drowsy or dizzy when you first start taking the medicine or change doses. Do not drive, use machinery, or do anything that may be dangerous until you know how the medicine affects you. Stand or sit up slowly. There are different types of narcotic medicines (opiates) for pain. If you take more than one type at the same time, you may have more side effects. Give your health care provider a list of all medicines you use. Your doctor will tell you how much medicine to take. Do not take more medicine than directed. Call emergency for help if you have problems breathing. The medicine will cause constipation. Try to have a bowel movement at least every 2 to 3 days. If you do not have a bowel movement for 3 days, call your doctor or health child care center assistant director. Too much acetaminophen can be very dangerous. Do not take Tylenol (acetaminophen) or medicines that contain acetaminophen with this medicine. Many non-prescription medicines contain acetaminophen. Always read the labels carefully. You have been given the following additional information: Urethritis, Male (Gc Vs. Chlam) Urethritis, Male (Infec Vs Inflam), Adult Hydrocodone Bitartrate, Acetaminophen Oral tablet (Electronically signed by Ronaldo Almendarez Dr. 08/01/2016 6:09)
--- NOTE | 2016-08-01 06:10 | ED MED RECONCILIATION SUMMARY ---
Patient: DON HAAS Medication Reconciliation Report [facility] VisitID: [id number] [address] [place] [address] 41y, M Registration Date/Time: 07/29/2016 Weight: 99.7 kg Height/Length: 68 in. BMI: 33.4 ALLERGIES: Sulfa Antibiotics The patient's Home Medications are listed below: NONE. The source(s) of the original Home Medication information: Not obtained. The following Medications were given to the patient in the Emergency Department: Flagyl [PO] PO 2000 mg, administered: 07/29/2016 6:32:00 AM Azithromycin [PO] PO 1000 mg, administered: 07/29/2016 6:32:00 AM Hydrocodone-APAP [PO] PO 1 tab, administered: 07/29/2016 6:32:00 AM Ceftriaxone [IM] IM 250 mg, administered: 07/29/2016 6:34:00 AM Lidocaine [Injection] Injection 1 %, administered: 07/29/2016 6:34:00 AM The following Medications were prescribed to the patient: [place] 5 mg / 325 mg tablets: take 1 orally every 6 hours as needed for pain. Dispense twelve (12). No refill. Substitution is permissible. -- Ronaldo Almendarez Dr.
--- NOTE | 2016-08-01 06:10 | ED MED RECONCILIATION SUMMARY ---
Patient: DON HAAS Medication Reconciliation Report [facility] VisitID: [id number] [address] [place] [address] 41y, M Registration Date/Time: 07/29/2016 Weight: 99.7 kg Height/Length: 68 in. BMI: 33.4 ALLERGIES: Sulfa Antibiotics The patient's Home Medications are listed below: NONE. The source(s) of the original Home Medication information: Not obtained. The following Medications were given to the patient in the Emergency Department: Flagyl [PO] PO 2000 mg, administered: 07/29/2016 6:32:00 AM Azithromycin [PO] PO 1000 mg, administered: 07/29/2016 6:32:00 AM Hydrocodone-APAP [PO] PO 1 tab, administered: 07/29/2016 6:32:00 AM Ceftriaxone [IM] IM 250 mg, administered: 07/29/2016 6:34:00 AM Lidocaine [Injection] Injection 1 %, administered: 07/29/2016 6:34:00 AM The following Medications were prescribed to the patient: [place] 5 mg / 325 mg tablets: take 1 orally every 6 hours as needed for pain. Dispense twelve (12). No refill. Substitution is permissible. -- Ronaldo Almendarez Dr.
--- NOTE | 2016-08-01 06:10 | ED MAR SUMMARY ---
..... Medication Administration Record [facility] [address] [place] [address] Patient: DON HAAS Visit ID: [id number] 41y, M Weight: 99.7 kg Height/Length: 68 in BMI: 33.4 ALLERGIES: Sulfa Antibiotics Given 06:07/29/2016 Nura Whitney R.N. Medication Administered: FLAGYL [PO] (METRONIDAZOLE), Dose: 2000 mg Tablets PO. Medication Ordered: Flagyl PO 2000 mg (NOW). Given :07/29/2016 Nura Whitney R.N. Medication Administered: AZITHROMYCIN [PO], Dose: 1000 mg Tablets PO. Medication Ordered: Azithromycin PO 1000 mg (NOW). Given :07/29/2016 Nura Whitney R.N. Medication Administered: HYDROCODONE-APAP [PO] (HYDROCODONE-ACETAMINOPHEN), Dose: 1 tab 5/325 mg Tablets PO. Medication Ordered: Hydrocodone-APAP PO 5/325 mg (NOW, HIGH ALERT MEDICATION). Given :07/29/2016 Nura Whitney R.N. Medication Administered: CEFTRIAXONE [IM], Dose: 250 mg IM. Medication Ordered: Ceftriaxone IM 250 mg (with lidocaine). Given 07/29/2016 Nura Whitney R.N. Medication Administered: LIDOCAINE [INJECTION], Dose: 1 % Injectable Injection. Medication Ordered: Lidocaine Injection 1% (to give with ceftriaxone (5 cc or less)).
--- NOTE | 2016-08-01 06:10 | ED MAR SUMMARY ---
..... Medication Administration Record [facility] [address] [place] [address] Patient: DON HAAS Visit ID: [id number] 41y, M Weight: 99.7 kg Height/Length: 68 in BMI: 33.4 ALLERGIES: Sulfa Antibiotics Given 06:07/29/2016 Nura Whitney R.N. Medication Administered: FLAGYL [PO] (METRONIDAZOLE), Dose: 2000 mg Tablets PO. Medication Ordered: Flagyl PO 2000 mg (NOW). Given :07/29/2016 Nura Whitney R.N. Medication Administered: AZITHROMYCIN [PO], Dose: 1000 mg Tablets PO. Medication Ordered: Azithromycin PO 1000 mg (NOW). Given :07/29/2016 Nura Whitney R.N. Medication Administered: HYDROCODONE-APAP [PO] (HYDROCODONE-ACETAMINOPHEN), Dose: 1 tab 5/325 mg Tablets PO. Medication Ordered: Hydrocodone-APAP PO 5/325 mg (NOW, HIGH ALERT MEDICATION). Given :07/29/2016 Nura Whitney R.N. Medication Administered: CEFTRIAXONE [IM], Dose: 250 mg IM. Medication Ordered: Ceftriaxone IM 250 mg (with lidocaine). Given 07/29/2016 Nura Whitney R.N. Medication Administered: LIDOCAINE [INJECTION], Dose: 1 % Injectable Injection. Medication Ordered: Lidocaine Injection 1% (to give with ceftriaxone (5 cc or less)).
== END 2016-07-29 06:40 | disposition home or self-care (01) ==
LOC: ED SRH 05:43
DX: N34.2 Other urethritis (principal); A64 Unspecified sexually transmitted disease
CPT/HCPCS: 90004; 90469; 91227; 91228

== ENCOUNTER 2016-09-22 19:26 | Emergency (ER) | payer OTHER ==
--- NOTE | 2016-09-22 22:01 | ED ORDER SUMMARY ---
..... Patient: DON HAAS OrderSheet [facility] VisitID: [id number] [address] [place] [address] 41y, M Registration Date/Time: 09/22/2016 ORDER SHEET Weight: 99.7 kg (stated) Allergies: Sulfa Antibiotics GENERAL ORDERS: MEDICATION ORDERS: [id number]-[id number]-Sggnm Pertussis IM 0.5 mL (NOW, per protocol) (21:25 09/22/2016 RMarsden R.N. per protocol) ([facility] 21:26 RMarsden R.N.) (21:42 RMarsden R.N.) IV FLUIDS: ORDER SHEET NOTES: [Electronically signed by Toshia Vogt R.N. (:15 09/22/2016)] [Electronically signed by Ryan Rubin Dr. (02:25 09/23/2016)] [Electronically locked/signed by Toshia Vogt R.N. (:15 09/22/2016)]
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
--- NOTE | 2016-09-22 22:01 | ED ORDER SUMMARY ---
..... Patient: DON HAAS OrderSheet [facility] VisitID: [id number] [address] [place] [address] 41y, M Registration Date/Time: 09/22/2016 ORDER SHEET Weight: 99.7 kg (stated) Allergies: Sulfa Antibiotics GENERAL ORDERS: MEDICATION ORDERS: Rflxnma-Hmputk-Wlazf Pertussis IM 0.5 mL (NOW, per protocol) (21:25 09/22/2016 RMarsden R.N. per protocol) ([facility] 21:26 RMarsden R.N.) (21:42 RMarsden R.N.) IV FLUIDS: ORDER SHEET NOTES: [Electronically signed by Toshia Vogt R.N. (:15 09/22/2016)] [Electronically signed by Ryan Rubin Dr. (02:25 09/23/2016)] [Electronically locked/signed by Toshia Vogt R.N. (:15 09/22/2016)]
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
--- NOTE | 2016-09-23 02:25 | ED MED RECONCILIATION SUMMARY ---
Patient: DON HAAS Medication Reconciliation Report [facility] VisitID: [id number] [address] [place] [address] 41y, M Registration Date/Time: 09/22/2016 Weight: 99.7 kg Height/Length: 68 in. BMI: 33.4 ALLERGIES: Sulfa Antibiotics The patient's Home Medications are listed below: NONE. The source(s) of the original Home Medication information: Not obtained. The following Medications were given to the patient in the Emergency Department: NSMQNCH-IDJXSD-IRIWL PERTUSSIS [IM] IM 0.5 mL, administered: 09/22/2016 9:41:00 PM The following Medications were prescribed to the patient: Hydrocodone/APAP 5mg / 325mg: take 1 orally every 6 hours as needed for pain. Dispense ten (10). No refill. -- Ryan Rubin Dr. Clindamycin 300 mg: take 1 capsule orally every 6 hours for 7 days. No refill. -- Ryan Rubin Dr.
--- NOTE | 2016-09-23 02:25 | ED MED RECONCILIATION SUMMARY ---
Patient: DON HAAS Medication Reconciliation Report [facility] VisitID: [id number] [address] [place] [address] 41y, M Registration Date/Time: 09/22/2016 Weight: 99.7 kg Height/Length: 68 in. BMI: 33.4 ALLERGIES: Sulfa Antibiotics The patient's Home Medications are listed below: NONE. The source(s) of the original Home Medication information: Not obtained. The following Medications were given to the patient in the Emergency Department: [id number]-TZDZDN-GHCAF PERTUSSIS [IM] IM 0.5 mL, administered: 09/22/2016 9:41:00 PM The following Medications were prescribed to the patient: Hydrocodone/APAP 5mg / 325mg: take 1 orally every 6 hours as needed for pain. Dispense ten (10). No refill. -- Ryan Rubin Dr. Clindamycin 300 mg: take 1 capsule orally every 6 hours for 7 days. No refill. -- Ryan Rubin Dr.
--- NOTE | 2016-09-23 02:25 | ED DISCHARGE INSTRUCTIONS ---
Patient: DON HAAS General Instructions [facility] VisitID: [id number] [address], [place] [address] 41y, M Registration Date/Time: 09/22/2016 Single deep abscess to the right upper extremity with incision and drainage. INSTRUCTIONS Your Current Medications: CONTINUE TAKING THE FOLLOWING MEDICATIONS: None*. Prescription Medications: Hydrocodone/APAP 5mg / 325mg: take 1 orally every 6 hours as needed for pain. Dispense ten (10). No refill. Clindamycin 300 mg: take 1 capsule orally every 6 hours for 7 days. No refill. Follow-up: Screening today revealed the patient's blood pressure to be in the pre-hypertensive range. The patient should follow up with a primary care provider for blood pressure management. Follow-up with: [facility], , , [address], , [place], [id number] Follow up in about three days. Call for an appointment. ADDITIONAL INFORMATION Abscess [Incision & Drainage] An abscess (sometimes called a boil) occurs when bacteria get trapped under the skin and begin to grow. Pus forms inside the abscess as the body responds to the bacteria. An abscess can occur with an insect bite, ingrown hair, blocked oil gland, pimple, cyst, or puncture wound. Treatment of your abscess has required an incision to drain the pus. If the abscess pocket was large, a gauze packing may have been inserted. This will need to be removed and possibly replaced on your next visit. Antibiotics are not required in the treatment of a simple abscess, unless the infection is spreading into the skin around the wound (known as cellulitis). Healing of the wound will take about one to two weeks depending on the size of the abscess. Healthy tissue will grow from the bottom and sides of the opening until it seals over. Home Care: The wound may drain for the first two days. Cover the wound with a clean dry dressing. If the dressing becomes soaked with blood or pus, change it. If a gauze packing was placed inside the abscess cavity, you may be advised to remove it yourself. You may do this in the shower. Once the packing is removed, you should wash the area in the shower or bath 3 to 4 times a day, until the skin opening has closed. If you were prescribed antibiotics, take them as directed until they are all gone. You may use acetaminophen (Tylenol) or ibuprofen (Motrin, Advil) to control pain, unless another pain medicine was prescribed. [ NOTE: If you have liver disease or ever had a stomach ulcer, talk with your doctor before using these medicines.] Follow Up with your doctor as advised by our staff. If a gauze packing was inserted in your wound, it should be removed in 1-2 days. Check your wound every day for the signs of worsening infection listed below. Get Prompt Medical Attention if any of the following occur: Increasing redness or swelling Red streaks in the skin leading away from the wound Increasing local pain or swelling Continued pus draining from the wound two days after treatment Fever of 100.4F (38C) or higher, or as directed by your healthcare provider Hydrocodone Bitartrate, Acetaminophen Oral tablet What is this medicine? ACETAMINOPHEN; HYDROCODONE (a set a PORSHA yaw fen; elan droe KOE done) is a pain reliever. It is used to treat mild to moderate pain. How should I use this medicine? Take this medicine by mouth. Swallow it with a full glass of water. Follow the directions on the prescription label. If the medicine upsets your stomach, take the medicine with food or milk. Do not take more than you are told to take. Talk to your knot borer regarding the use of this medicine in children. This medicine is not approved for use in children. What side effects may I notice from receiving this medicine? Side effects that you should report to your doctor or health dialysis patient care technician as soon as possible: allergic reactions like skin rash, itching or hives, swelling of the face, lips, or tongue breathing problems confusion feeling faint or lightheaded, falls stomach pain yellowing of the eyes or skin Side effects that usually do not require medical attention (report to your doctor or health dialysis patient care technician if they continue or are bothersome): nausea, vomiting stomach upset What may interact with this medicine? alcohol antihistamines isoniazid medicines for depression, anxiety, or psychotic disturbances medicines for sleep muscle relaxants naltrexone narcotic medicines (opiates) for pain phenobarbital ritonavir tramadol What if I miss a dose? If you miss a dose, take it as soon as you can. If it is almost time for your next dose, take only that dose. Do not take double or extra doses. Where should I keep my medicine? Keep out of the reach of children. This medicine can be abused. Keep your medicine in a safe place to protect it from theft. Do not share this medicine with anyone. Selling or giving away this medicine is dangerous and against the law. Store at room temperature between 15 and 30 degrees C (59 and 86 degrees F). Protect from light. Keep container tightly closed. Throw away any unused medicine after the expiration date. Discard unused medicine and used packaging carefully. Pets and children can be harmed if they find used or lost packages. What should I tell my health care provider before I take this medicine? They need to know if you have any of these conditions: brain tumor Crohn's disease, inflammatory bowel disease, or ulcerative colitis drink more than 3 alcohol-containing drinks per day drug abuse or addiction head injury heart or circulation problems kidney disease or problems going to the bathroom liver disease lung disease, asthma, or breathing problems an unusual or allergic reaction to acetaminophen, hydrocodone, other opioid analgesics, other medicines, foods, dyes, or preservatives or trying to get breast-feeding What should I watch for while using this medicine? Tell your doctor or health dialysis patient care technician if your pain does not go away, if it gets worse, or if you have new or a different type of pain. You may develop tolerance to the medicine. Tolerance means that you will need a higher dose of the medicine for pain relief. Tolerance is normal and is expected if you take the medicine for a long time. Do not suddenly stop taking your medicine because you may develop a severe reaction. Your body becomes used to the medicine. This does NOT mean you are addicted. Addiction is a behavior related to getting and using a drug for a non-medical reason. If you have pain, you have a medical reason to take pain medicine. Your doctor will tell you how much medicine to take. If your doctor wants you to stop the medicine, the dose will be slowly lowered over time to avoid any side effects. You may get drowsy or dizzy when you first start taking the medicine or change doses. Do not drive, use machinery, or do anything that may be dangerous until you know how the medicine affects you. Stand or sit up slowly. There are different types of narcotic medicines (opiates) for pain. If you take more than one type at the same time, you may have more side effects. Give your health care provider a list of all medicines you use. Your doctor will tell you how much medicine to take. Do not take more medicine than directed. Call emergency for help if you have problems breathing. The medicine will cause constipation. Try to have a bowel movement at least every 2 to 3 days. If you do not have a bowel movement for 3 days, call your doctor or health dialysis patient care technician. Too much acetaminophen can be very dangerous. Do not take Tylenol (acetaminophen) or medicines that contain acetaminophen with this medicine. Many non-prescription medicines contain acetaminophen. Always read the labels carefully. Clindamycin Hydrochloride Oral capsule What is this medicine? CLINDAMYCIN (KLIN da ISRAEL sin) is a lincosamide antibiotic. It is used to treat certain kinds of bacterial infections. It will not work for colds, flu, or other viral infections. How should I use this medicine? Take this medicine by mouth with a full glass of water. Follow the directions on the prescription label. You can take this medicine with food or on an empty stomach. If the medicine upsets your stomach, take it with food. Take your medicine at regular intervals. Do not take your medicine more often than directed. Take all of your medicine as directed even if you think your are better. Do not skip doses or stop your medicine early. Talk to your knot borer regarding the use of this medicine in children. Special care may be needed. What side effects may I notice from receiving this medicine? Side effects that you should report to your doctor or health dialysis patient care technician as soon as possible: allergic reactions like skin rash, itching or hives, swelling of the face, lips, or tongue dark urine pain on swallowing redness, blistering, peeling or loosening of the skin, including inside the mouth unusual bleeding or bruising unusually weak or tired yellowing of eyes or skin Side effects that usually do not require medical attention (report to your doctor or health dialysis patient care technician if they continue or are bothersome): diarrhea itching in the rectal or genital area joint pain nausea, vomiting stomach pain What may interact with this medicine? chloramphenicol erythromycin kaolin products What if I miss a dose? If you miss a dose, take it as soon as you can. If it is almost time for your next dose, take only that dose. Do not take double or extra doses. Where should I keep my medicine? Keep out of the reach of children. Store at room temperature between 20 and 25 degrees C (68 and 77 degrees F). Throw away any unused medicine after the expiration date. What should I tell my health care provider before I take this medicine? They need to know if you have any of these conditions: kidney disease liver disease stomach problems like colitis an unusual or allergic reaction to clindamycin, lincomycin, or other medicines, foods, dyes like tartrazine or preservatives or trying to get breast-feeding What should I watch for while using this medicine? Tell your doctor or healthcare professional if your symptoms do not start to get better or if they get worse. Do not treat diarrhea with over the counter products. Contact your doctor if you have diarrhea that lasts more than 2 days or if it is severe and watery. You have been given the following additional information: Abscess, Incision And Drainage Hydrocodone Bitartrate, Acetaminophen Oral tablet Clindamycin Hydrochloride Oral capsule (Electronically signed by Ryan Rubin Dr. 09/23/2016 2:25)
--- NOTE | 2016-09-23 02:25 | ED DISCHARGE INSTRUCTIONS ---
Patient: DON HAAS General Instructions [facility] VisitID: [id number] [address], [place] [address] 41y, M Registration Date/Time: 09/22/2016 Single deep abscess to the right upper extremity with incision and drainage. INSTRUCTIONS Your Current Medications: CONTINUE TAKING THE FOLLOWING MEDICATIONS: None*. Prescription Medications: Hydrocodone/APAP 5mg / 325mg: take 1 orally every 6 hours as needed for pain. Dispense ten (10). No refill. Clindamycin 300 mg: take 1 capsule orally every 6 hours for 7 days. No refill. Follow-up: Screening today revealed the patient's blood pressure to be in the pre-hypertensive range. The patient should follow up with a primary care provider for blood pressure management. Follow-up with: [facility], , , [address], , [place], [id number] Follow up in about three days. Call for an appointment. ADDITIONAL INFORMATION Abscess [Incision & Drainage] An abscess (sometimes called a boil) occurs when bacteria get trapped under the skin and begin to grow. Pus forms inside the abscess as the body responds to the bacteria. An abscess can occur with an insect bite, ingrown hair, blocked oil gland, pimple, cyst, or puncture wound. Treatment of your abscess has required an incision to drain the pus. If the abscess pocket was large, a gauze packing may have been inserted. This will need to be removed and possibly replaced on your next visit. Antibiotics are not required in the treatment of a simple abscess, unless the infection is spreading into the skin around the wound (known as cellulitis). Healing of the wound will take about one to two weeks depending on the size of the abscess. Healthy tissue will grow from the bottom and sides of the opening until it seals over. Home Care: The wound may drain for the first two days. Cover the wound with a clean dry dressing. If the dressing becomes soaked with blood or pus, change it. If a gauze packing was placed inside the abscess cavity, you may be advised to remove it yourself. You may do this in the shower. Once the packing is removed, you should wash the area in the shower or bath 3 to 4 times a day, until the skin opening has closed. If you were prescribed antibiotics, take them as directed until they are all gone. You may use acetaminophen (Tylenol) or ibuprofen (Motrin, Advil) to control pain, unless another pain medicine was prescribed. [ NOTE: If you have liver disease or ever had a stomach ulcer, talk with your doctor before using these medicines.] Follow Up with your doctor as advised by our staff. If a gauze packing was inserted in your wound, it should be removed in 1-2 days. Check your wound every day for the signs of worsening infection listed below. Get Prompt Medical Attention if any of the following occur: Increasing redness or swelling Red streaks in the skin leading away from the wound Increasing local pain or swelling Continued pus draining from the wound two days after treatment Fever of 100.4F (38C) or higher, or as directed by your healthcare provider Hydrocodone Bitartrate, Acetaminophen Oral tablet What is this medicine? ACETAMINOPHEN; HYDROCODONE (a set a PORSHA yaw fen; elan droe KOE done) is a pain reliever. It is used to treat mild to moderate pain. How should I use this medicine? Take this medicine by mouth. Swallow it with a full glass of water. Follow the directions on the prescription label. If the medicine upsets your stomach, take the medicine with food or milk. Do not take more than you are told to take. Talk to your cut press operator regarding the use of this medicine in children. This medicine is not approved for use in children. What side effects may I notice from receiving this medicine? Side effects that you should report to your doctor or health managed care manager as soon as possible: allergic reactions like skin rash, itching or hives, swelling of the face, lips, or tongue breathing problems confusion feeling faint or lightheaded, falls stomach pain yellowing of the eyes or skin Side effects that usually do not require medical attention (report to your doctor or health managed care manager if they continue or are bothersome): nausea, vomiting stomach upset What may interact with this medicine? alcohol antihistamines isoniazid medicines for depression, anxiety, or psychotic disturbances medicines for sleep muscle relaxants naltrexone narcotic medicines (opiates) for pain phenobarbital ritonavir tramadol What if I miss a dose? If you miss a dose, take it as soon as you can. If it is almost time for your next dose, take only that dose. Do not take double or extra doses. Where should I keep my medicine? Keep out of the reach of children. This medicine can be abused. Keep your medicine in a safe place to protect it from theft. Do not share this medicine with anyone. Selling or giving away this medicine is dangerous and against the law. Store at room temperature between 15 and 30 degrees C (59 and 86 degrees F). Protect from light. Keep container tightly closed. Throw away any unused medicine after the expiration date. Discard unused medicine and used packaging carefully. Pets and children can be harmed if they find used or lost packages. What should I tell my health care provider before I take this medicine? They need to know if you have any of these conditions: brain tumor Crohn's disease, inflammatory bowel disease, or ulcerative colitis drink more than 3 alcohol-containing drinks per day drug abuse or addiction head injury heart or circulation problems kidney disease or problems going to the bathroom liver disease lung disease, asthma, or breathing problems an unusual or allergic reaction to acetaminophen, hydrocodone, other opioid analgesics, other medicines, foods, dyes, or preservatives or trying to get breast-feeding What should I watch for while using this medicine? Tell your doctor or health managed care manager if your pain does not go away, if it gets worse, or if you have new or a different type of pain. You may develop tolerance to the medicine. Tolerance means that you will need a higher dose of the medicine for pain relief. Tolerance is normal and is expected if you take the medicine for a long time. Do not suddenly stop taking your medicine because you may develop a severe reaction. Your body becomes used to the medicine. This does NOT mean you are addicted. Addiction is a behavior related to getting and using a drug for a non-medical reason. If you have pain, you have a medical reason to take pain medicine. Your doctor will tell you how much medicine to take. If your doctor wants you to stop the medicine, the dose will be slowly lowered over time to avoid any side effects. You may get drowsy or dizzy when you first start taking the medicine or change doses. Do not drive, use machinery, or do anything that may be dangerous until you know how the medicine affects you. Stand or sit up slowly. There are different types of narcotic medicines (opiates) for pain. If you take more than one type at the same time, you may have more side effects. Give your health care provider a list of all medicines you use. Your doctor will tell you how much medicine to take. Do not take more medicine than directed. Call emergency for help if you have problems breathing. The medicine will cause constipation. Try to have a bowel movement at least every 2 to 3 days. If you do not have a bowel movement for 3 days, call your doctor or health managed care manager. Too much acetaminophen can be very dangerous. Do not take Tylenol (acetaminophen) or medicines that contain acetaminophen with this medicine. Many non-prescription medicines contain acetaminophen. Always read the labels carefully. Clindamycin Hydrochloride Oral capsule What is this medicine? CLINDAMYCIN (KLIN da ISRAEL sin) is a lincosamide antibiotic. It is used to treat certain kinds of bacterial infections. It will not work for colds, flu, or other viral infections. How should I use this medicine? Take this medicine by mouth with a full glass of water. Follow the directions on the prescription label. You can take this medicine with food or on an empty stomach. If the medicine upsets your stomach, take it with food. Take your medicine at regular intervals. Do not take your medicine more often than directed. Take all of your medicine as directed even if you think your are better. Do not skip doses or stop your medicine early. Talk to your cut press operator regarding the use of this medicine in children. Special care may be needed. What side effects may I notice from receiving this medicine? Side effects that you should report to your doctor or health managed care manager as soon as possible: allergic reactions like skin rash, itching or hives, swelling of the face, lips, or tongue dark urine pain on swallowing redness, blistering, peeling or loosening of the skin, including inside the mouth unusual bleeding or bruising unusually weak or tired yellowing of eyes or skin Side effects that usually do not require medical attention (report to your doctor or health managed care manager if they continue or are bothersome): diarrhea itching in the rectal or genital area joint pain nausea, vomiting stomach pain What may interact with this medicine? chloramphenicol erythromycin kaolin products What if I miss a dose? If you miss a dose, take it as soon as you can. If it is almost time for your next dose, take only that dose. Do not take double or extra doses. Where should I keep my medicine? Keep out of the reach of children. Store at room temperature between 20 and 25 degrees C (68 and 77 degrees F). Throw away any unused medicine after the expiration date. What should I tell my health care provider before I take this medicine? They need to know if you have any of these conditions: kidney disease liver disease stomach problems like colitis an unusual or allergic reaction to clindamycin, lincomycin, or other medicines, foods, dyes like tartrazine or preservatives or trying to get breast-feeding What should I watch for while using this medicine? Tell your doctor or healthcare professional if your symptoms do not start to get better or if they get worse. Do not treat diarrhea with over the counter products. Contact your doctor if you have diarrhea that lasts more than 2 days or if it is severe and watery. You have been given the following additional information: Abscess, Incision And Drainage Hydrocodone Bitartrate, Acetaminophen Oral tablet Clindamycin Hydrochloride Oral capsule (Electronically signed by Ryan Rubin Dr. 09/23/2016 2:25)
--- NOTE | 2016-09-23 02:25 | ED MAR SUMMARY ---
..... Medication Administration Record [facility] [address] [place] [address] Patient: DON HAAS Visit ID: [id number] 41y, M Weight: 99.7 kg Height/Length: 68 in BMI: 33.4 ALLERGIES: Sulfa Antibiotics Given 21:41 09/22/2016 Toshia Vogt R.N. Medication Administered: RIZDTRI-ISZULT-QTESF PERTUSSIS [IM], Dose: 0.5 mL IM. Medication Ordered: Hwjxxer-Sxynah-Siuih Pertussis IM 0.5 mL (NOW, per protocol).
--- NOTE | 2016-09-23 02:25 | ED MAR SUMMARY ---
..... Medication Administration Record [facility] [address] [place] [address] Patient: DON HAAS Visit ID: [id number] 41y, M Weight: 99.7 kg Height/Length: 68 in BMI: 33.4 ALLERGIES: Sulfa Antibiotics Given 21:41 09/22/2016 Toshia Vogt R.N. Medication Administered: UEAYLIN-AUNBBK-VSPHM PERTUSSIS [IM], Dose: 0.5 mL IM. Medication Ordered: Xoplfoi-Czzkjt-Ldflb Pertussis IM 0.5 mL (NOW, per protocol).
== END 2016-09-22 22:06 | disposition left against medical advice (07) ==
LOC: ED SRH 19:26
DX: L02.511 Cutaneous abscess of right hand (principal); W45.8XXA Other foreign body or object entering through skin, initial encounter; Y93.9 Activity, unspecified; Y99.9 Unspecified external cause status; Y92.009 Unspecified place in unspecified non-institutional (private) residence as the place of occurrence of the external cause; I10 Essential (primary) hypertension; J44.9 Chronic obstructive pulmonary disease, unspecified; E78.00 Pure hypercholesterolemia, unspecified; Z86.14 Personal history of Methicillin resistant Staphylococcus aureus infection; Z23 Encounter for immunization